=== PATIENT | female | born 2005 | race Two or more races ===

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

== ENCOUNTER 2023-09-08 20:49 | Emergency (ER) | payer MEDICAID, OTHER ==
[~2023-09-08] VITALS: Ht 157.5 cm; Wt 56.0 kg
[2023-09-08] MEDS ORDERED: methylPREDNISolone SOD SUCC 125 MG/2 ML VL IM ONE (21:30)
[2023-09-08] MEDS ORDERED: diphenhdrAMINE HCL 50 MG/1 ML VL IM ONE (21:30)
[2023-09-08 21:52] VITALS: BP 127/82; PULSE 120; RESP 17; TEMP 97.8; O2SAT 97
[2023-09-08] MEDS ORDERED: PRED20TA2 PO (22:32)
[2023-09-08] MEDS ORDERED: DIPH25CA66 PO (22:32)
== END 2023-09-09 00:24 | disposition home or self-care (01) ==
LOC: ER 20:49
DX: T78.40XA Allergy, unspecified, initial encounter (principal); J45.909 Unspecified asthma, uncomplicated; X58.XXXA Exposure to other specified factors, initial encounter
CPT/HCPCS: 96372; 99284; J1200; J2930

== ENCOUNTER 2023-09-18 11:28 | Emergency (ER) | payer MEDICAID ==
[~2023-09-18] VITALS: Ht 157.5 cm; Wt 55.2 kg
[~2023-09-18 11:28] MED LIST: DIPH25CA66 PO; PRED20TA2 PO
[2023-09-18 12:25] VITALS: TEMP 97.8
[2023-09-18] MEDS ORDERED: BENZOCAINE (DENTAL) 20 % SPRAY 60ML MT ONE (12:30)
[2023-09-18] MEDS ORDERED: HYDROmorphone HCL 2 MG/ML VL/or syr IM ONE (12:30)
[2023-09-18 12:34] VITALS: O2SAT 97
[2023-09-18 12:59] VITALS: BP 119/87; PULSE 121; RESP 18
[2023-09-18] MEDS ORDERED: AMPICILLIN & SULBACTAM SODIUM 3 GM in SODIUM CHL 0.9% 100 ML IV STA (12:59)
[2023-09-18] MEDS ORDERED: AUG875T PO ×3 (13:27→17:34)
[2023-09-18] MEDS ORDERED: CHL12OR MT ×3 (13:27→17:34)
[2023-09-18] MEDS ORDERED: TRAM50TA2 PO (13:29)
[2023-09-18 16:26] LABS: Basophils # (auto) 0.1 10 ^3/uL (0-0.2); Basophils % (auto) 0.5 % (0.0-2.0); Eosinophils # (auto) 0 10 ^3/uL (0-0.8); Eosinophils % (auto) 0.1 % (0.0-7.0); Mean Corpuscular Volume 79.5 fL (80.0-100.0); Monocytes # (auto) 1.8 10 ^3/uL (0-1.3); Red Cell Distribution Width 13.8 % (11.8-14.3); White Blood Cell 19.2 10^3/uL (4.4-10.8)
[2023-09-18 16:28] LABS: Hematocrit 40.2 % (36.0-46.0); Hemoglobin 12.9 g/dL (12.2-16.2); Lymphocytes # (auto) 1.9 10 ^3/uL (0.4-5.4); Lymphocytes % (auto) 9.8 % (10.0-50.0); Mean Corpuscular Hemoglobin 25.6 pg (28.0-32.0); Mean Corpuscular Hgb Conc. 32.2 g/dL (32.0-36.0); Monocytes % (auto) 9.4 % (0.0-12.0); Neutrophils # (auto) 15.4 10 ^3/uL (1.6-8.6); Neutrophils % (auto) 80.2 % (37.0-80.0); Red Blood Cells 5.05 10^6/uL (4.0-5.20)
[2023-09-18 16:50] LABS: Alanine Aminotransferase 18 U/L (7-40); Alkaline Phosphatase 75 U/L (46-116); Anion Gap 9 (5-15); BUN/Creatinine Ratio 10.3 (10.0-20.0); Blood Urea Nitrogen 8 mg/dL (9-23); Calcium 9.5 mg/dL (8.5-10.1); Carbon Dioxide 24 mmol/L (20-30); Chloride 105 mmol/L (98-107); Glucose 94 mg/dL (74-106); Sodium 138 mmol/L (136-145)
[2023-09-18 16:51] LABS: Albumin 4.6 g/dL (3.2-4.8); Aspartate Aminotransferase 14 U/L (13-40); Bilirubin, Total 0.5 mg/dL (0.2-1.0); Total Protein 7.7 g/dL (5.7-8.2)
[2023-09-18] MEDS ORDERED: KETOROLAC TROMETH 60MG/2ML VIAL IM ONE (17:45)
== END 2023-09-18 17:46 | disposition home or self-care (01) ==
LOC: ER 11:28
DX: K04.7 Periapical abscess without sinus (principal); R51.9 Headache, unspecified
CPT/HCPCS: 36415; 70486; 80053; 85025; 96365; 96372; 99285; J1170; J1885; 96375